=== PATIENT | female | born 1985 | race Caucasian/White ===

== ENCOUNTER 2017-12-29 15:10 | Emergency (ER) | payer OTHER ==
[~2017-12-29] VITALS: Ht 162.6 cm; Wt 57.2 kg
[~2017-12-29 15:10] MED LIST: METOCLOPRAMIDE HCL 10 MG/2 ML VIAL. IV ONE
--- NOTE | 2017-12-29 15:29 | PHYS DOC ---
Past History Past Medical History: No Pertinent History Past Surgical History: No Surgical History Smoking: Non-smoker Alcohol Use: None Adult General Chief Complaint Chief Complaint: VOMITING IN HPI HPI This is a pleasant 32-year-old female presenting to the emergency department today with nausea and vomiting in . She denies abdominal pain or vaginal bleeding. This is been present for multiple weeks. She is tried cherri with no relief. She had a history of hyperemesis gravidarum with her first child. location generalized. duration intermittent. Review of systems is negative for chest pain abdominal pain vaginal bleeding fevers or chills. All other review of systems is negative unless otherwise noted in history of present illness. ED course: 32-year-old female presenting with nausea and vomiting in . On examination the patient is well-appearing IV fluids and Reglan given here in the emergency department. Ultrasound shows intrauterine . Rh+. Otherwise unremarkable workup. We will discharge patient home with oral Reglan to follow-up with OB in the next 2-3 days.The patient has been examined and was not found to have an emergency medical condition. The patient was then discharged home in stable condition. They were to return if their symptoms worsened or if they were concerned for any reason. They were also instructed to return to the emergency department if they were unable to get the recommended and appropriate follow-up. [id number] discharge instructions and return precautions were given. Patient's questions were answered to their satisfaction. Patient is comfortable with plan. Review of Systems Review of Systems SEE ABOVE. Current Medications Current Medications Current Medications Medications (Trade) Dose Ordered Sig/[facility] Start Time Stop Time Status Last Admin Dose Admin Metoclopramide HCl (Reglan Vial) 10 mg 1X ONCE 12/29/17 15:30 12/29/17 15:31 UNV Sodium Chloride 1,000 ml @ 1,000 mls/hr 1X ONCE 12/29/17 15:30 12/29/17 16:29 UNV Physical Exam Physical Exam SEE ABOVE Constitutional: Well developed, well nourished, no acute distress, non-toxic appearance. HENT: Normocephalic, atraumatic, bilateral external ears normal, oropharynx moist, no oral exudates, nose normal. [] Eyes: PERRLA, EOMI, conjunctiva normal, no discharge. [] Neck: Normal range of motion, no tenderness, supple, no stridor. Cardiovascular:Heart rate regular rhythm, no murmur [] Lungs & Thorax: Bilateral breath sounds clear to auscultation Abdomen: Bowel sounds normal, soft, no tenderness, no masses, no pulsatile masses. Skin: Warm, dry, no erythema, no rash. [] Back: No tenderness, no CVA tenderness. [] Extremities: No tenderness, no cyanosis, no clubbing, ROM intact, no edema. [] Neurologic: Alert and oriented X 3, normal motor function, normal sensory function, no focal deficits noted. Psychologic: Affect normal, judgement normal, mood normal. [] EKG EKG [] Radiology/Procedures Radiology/Procedures [] Course & Med Decision Making Course & Med Decision Making Pertinent Labs and Imaging studies reviewed. (See chart for details) [] Dragon Disclaimer Dragon Disclaimer This electronic medical record was generated, in whole or in part, using a voice recognition dictation system. Departure Departure: Impression: Primary Impression: Nausea and vomiting during Disposition: HOME, SELF-CARE Condition: STABLE Referrals: RAMAKRISHNA PAYNE (PCP) Patient Instructions: ABCs of , Additional Instructions: Thank you for allowing us to participate in your care today. Return to the emergency department you have any new or worsening symptoms, or if you are concerned for any reason. Return to emergency department if you have any new or concerning symptoms including but not limited to fever, chills, nausea, vomiting, intractable pain, any new rashes, chest pain, shortness of air , uncontrolled bleeding, difficulty breathing, and/or vision loss. Follow up with your OB within 3 days. Call your Primary Doctor tomorrow and inform them of your visit today. If you do not have a primary care provider we are happy to provide you with a list of our primary care providers contact information. This condition should be evaluated by your primary care physician and any recommended consulting services for continued management within 2-3 days after discharge. If at any time, you are having difficulty getting into your primary care doctor or a specialist, return to the emergency department. Scripts Metoclopramide Hcl (REGLAN) 10 Mg Tablet 1 TAB PO PRN BID PRN for NAUSEA, #4 TAB 0 Refills Prov: GRACE FLYNN MD 12/29/17 GRACE FLYNN MD Dec 29, 2017 15:29
[2017-12-29] MEDS ORDERED: IV NORMAL SALINE 1,000ML 1,000 ML IV ONE (15:30)
[2017-12-29 15:41] LABS: BASO % 1 % (0-3); EOS % 0 % (0-3); HEMATOCRIT 45.8 % (36.0-47.0); HEMOGLOBIN 16.2 g/dL (12.0-15.5); LYMPH # 1.2 x10^3/uL (1.0-4.8); LYMPH % 14 % (24-48); MEAN CORPUSCULAR HEMOGLOBIN 31 pg (25-35); MEAN CORPUSCULAR HGB CONC 35 g/dL (31-37); MEAN CORPUSCULAR VOLUME 86 fL (79-100); MONO # 1.4 x10^3/uL (0.0-1.1); MONO % 17 % (0-9); NEUT # 5.6 x10^3uL (1.8-7.7); NEUT % 68 % (31-73); PLATELET COUNT 244 x10^3/uL (140-400); RED BLOOD COUNT 5.31 x10^6/uL (3.50-5.40); RED CELL DISTRIBUTION WIDTH 12.7 % (11.5-14.5); WHITE BLOOD COUNT 8.3 x10^3/uL (4.0-11.0)
[2017-12-29 15:56] LABS: ALBUMIN 4.4 g/dL (3.4-5.0); CALCIUM 9.3 mg/dL (8.5-10.1); CREATININE 0.7 mg/dL (0.6-1.0); DIRECT BILIRUBIN 0.2 mg/dL (0.0-0.2); POTASSIUM 3.5 mmol/L (3.5-5.1); TOTAL BILIRUBIN 0.6 mg/dL (0.2-1.0)
--- NOTE | 2017-12-29 16:53 | RAD ---
Obstetrical ultrasound, 12/29/2017: HISTORY: , maternal vomiting Transabdominal and transvaginal scans were obtained. The uterus is enlarged and contains a gestational sac. The gestational sac contains a single pole demonstrating a crown-rump length of 9 mm. This suggests a gestational age of 6 weeks and 6 days yielding a sonographic EDC of 08/18/2018. The size of the gestational sac suggests a slightly more advanced . activity and cardiac motion is present with a heart rate of 135 bpm. There is no evidence of subchorionic hemorrhage. The ovaries are of normal size and contain small follicular cysts. Blood flow is present in both ovaries. No adnexal mass is seen. A small amount of simple appearing free fluid is present in the pelvis. IMPRESSION: 1. Single viable intrauterine of approximate 7 weeks gestational age. 2. Small amount of free fluid in the pelvis. Electronically signed by: Cristobal Galvez MD (12/29/2017 4:50 PM) [facility]
[2017-12-29] MEDS ORDERED: METO10TA81 PO (17:16)
[2017-12-29 17:32] VITALS: BP 107/57
== END 2017-12-29 17:39 | disposition home or self-care (01) ==
LOC: ER 15:10
DX: O21.9 Vomiting of pregnancy, unspecified (principal); O36.0910 Maternal care for other rhesus isoimmunization, first trimester, not applicable or unspecified; Z3A.01 Less than 8 weeks gestation of pregnancy
CPT/HCPCS: 36415; 76801; 76817; 80048; 80076; 83690; 84702; 85025; 86901; 96360; 96361; 99285-25; J7030